=== PATIENT | female | born 1975 | race Hispanic/Latino ===

== ENCOUNTER 2019-03-10 20:38 | Emergency (ER) | payer SELFPAY ==
--- OUTSIDE RECORDS SUMMARY | 2019-03-10 20:40 | XMS REPORT ---
Author [facility] Address Unknown Phone Unavailable Care Team Providers Care Senior Production Manager Name Role Phone Unavailable Unavailable Problems This patient has no known problems. Allergies, Adverse Reactions, Alerts This patient has no known allergies or adverse reactions. Medications This patient has no known medications. Encounters Start Date/Time End Date/Time Encounter Type Admission Type Attending [facility] Care Department Encounter ID 2019-02-10 00:00:00 2019-02-10 00:00:00 Outpatient [facility] [id number] 2018-12-22 00:00:00 2018-12-22 00:00:00 Outpatient [facility] [id number] 2018-10-12 09:49:00 2018-10-12 09:49:00 Outpatient [facility] [id number] 2018-10-12 08:48:26 2018-10-12 08:48:26 Outpatient [facility] [id number] 2018-09-30 14:34:26 2018-09-30 14:34:26 Outpatient [facility] [id number] 2018-09-30 14:17:32 2018-09-30 14:17:32 Outpatient [facility] [id number] 2018-09-30 00:00:00 2018-09-30 00:00:00 Outpatient [facility] [id number] 2018-09-28 00:00:00 2018-09-28 00:00:00 Outpatient [facility] [id number] 2018-09-26 10:28:19 2018-09-26 10:28:19 Outpatient [facility] [id number] 2018-09-26 09:23:08 2018-09-26 09:23:08 Outpatient [facility] [id number] 2018-07-20 09:48:47 2018-07-20 09:48:47 Outpatient [facility] [id number] 2018-06-29 13:28:09 2018-06-29 13:28:09 Outpatient [facility] [id number] 2018-06-29 13:27:53 2018-06-29 13:27:53 Outpatient [facility] [id number] 2018-06-28 11:28:39 2018-06-28 11:28:39 Outpatient [facility] [id number] 2018-01-11 00:00:00 2018-01-11 00:00:00 Outpatient [facility] [id number] 2017-11-25 00:00:00 2017-11-25 00:00:00 Outpatient [facility] [id number] 2017-11-05 00:00:00 2017-11-05 00:00:00 Outpatient [facility] [id number] 2017-06-30 00:00:00 2017-06-30 00:00:00 Outpatient [facility] [id number] 2017-05-26 00:00:00 2017-05-26 00:00:00 Outpatient [facility] [id number] 2017-04-02 12:55:11 2017-04-02 12:55:11 Outpatient [facility] [id number] 2017-03-24 09:41:32 2017-03-24 09:41:32 Outpatient [facility] [id number] 2017-03-12 00:00:00 2017-03-12 00:00:00 Outpatient [facility] [id number] 2017-02-12 16:07:40 2017-02-12 16:07:40 Outpatient [facility] [id number] 2017-02-09 09:08:57 2017-02-09 09:08:57 Outpatient [facility] [id number] 2017-02-08 00:00:00 2017-02-08 00:00:00 Outpatient [facility] [id number]
[2019-03-10 21:36] LABS: BILIRUBIN,URINE NEGATIVE (NEGATIVE); CLARITY,URINE CLOUDY (CLEAR); COLOR,URINE ORANGE (YELLOW); KETONES,URINE NEGATIVE (NEGATIVE); LEUKOCYTE ESTERASE ,URINE TRACE (NEGATIVE); NITRITE,URINE POSITIVE (NEGATIVE); PROTEIN,URINE DIPSTICK 1+ (NEGATIVE); URINE UROBILINOGEN 1 mg/dL (0.2 - 1)
[2019-03-10 21:49] LABS: BACTERIA,URINE MANY /HPF; EPITHELIAL CELLS,URINE MODERATE /LPF
[2019-03-10] MEDS ORDERED: HYDROCODONE/APAP 7.5MG-325MG 1 EA TAB PO STA (22:10)
== END 2019-03-10 22:50 | disposition home or self-care (01) ==
LOC: ER 20:38
DX: A60.04 Herpesviral vulvovaginitis (principal); N30.91 Cystitis, unspecified with hematuria; I10 Essential (primary) hypertension; E78.5 Hyperlipidemia, unspecified; Z98.84 Bariatric surgery status
CPT/HCPCS: 81001; 87086; 87186; 99283